=== PATIENT | male | born 1985 ===

== ENCOUNTER 2019-09-08 20:45 | Emergency (ER) | payer MEDICAID ==
[~2019-09-08] VITALS: Ht 175.3 cm; Wt 69.0 kg
[2019-09-09 02:17] VITALS: BP 101/70
== END 2019-09-09 02:22 | disposition home or self-care (01) ==
LOC: ER 20:45
DX: R07.9 Chest pain, unspecified (principal); E78.00 Pure hypercholesterolemia, unspecified; F41.9 Anxiety disorder, unspecified; F12.10 Cannabis abuse, uncomplicated; F17.210 Nicotine dependence, cigarettes, uncomplicated
CPT/HCPCS: 36415; 71045; 83880; 84484; 93005; 99284; 99406